=== PATIENT | female | born 1980 | race Caucasian/White ===

== ENCOUNTER 2020-04-26 11:54 | Emergency (ER) | payer MEDICAID ==
[~2020-04-26] VITALS: Ht 162.6 cm; Wt 45.4 kg
--- NOTE | 2020-04-26 12:12 | NUR ---
PT C/O RIGHT UPPER ABD PAIN 06/26. PT WAS SEEN LAST NIGHT AT [facility] AND WAS TOLD SHE NEED TO HAVE HER GALL BLADDER REMOVED. PT STATES SHE HAS HAD PAIN FOR 5 DAYS. PT DENIES N/V OR ANY OTHER SYMPTOM OTHER THAN PAIN. LAST ORAL INTAKE WAS AN ORANGE AT 1200 TODAY.
[2020-04-26] MEDS ORDERED: ONDANSETRON 2MG/ML, 2ML IVPush ONE (12:30)
[2020-04-26] MEDS ORDERED: MORPHINE SULFATE 4 MG/ML, 1ML IVPush PRN (12:30)
[2020-04-26] MEDS ORDERED: SODIUM CHLORIDE FLUSH 10ML SYR IVF ONE (12:30)
[2020-04-26] MEDS ORDERED: ONDANSETRON 2MG/ML, 2ML ONE (12:31)
[2020-04-26] MEDS ORDERED: MORPHINE SULFATE 4 MG/ML, 1ML ONE (12:31)
--- NOTE | 2020-04-26 12:35 | NUR ---
pt in bed with no signs or symptoms of acute distress noted respirations even and unlabored, rn at bedside to start iv and medicate pt. pt updated on plan of care, verbalizes understanding and agreement. us at bedside to do imaging.
[2020-04-26 12:37] LABS: BASOPHILS % (AUTO) 1 % (0-1); EOSINOPHILS % (AUTO) 10 % (1-7); LYMPHOCYTES % (AUTO) 41 % (22-44); MEAN CORPUSCULAR HEMOGLOBIN 31.8 pg (27.0-34.8); MEAN CORPUSCULAR HGB CONC 33.7 g/dL (32.4-35.8); MEAN PLATELET VOLUME 6.8 fL (7.4-10.4); MONOCYTES % (AUTO) 7 % (2-9); NEUTROPHILS % (AUTO) 42 % (42-75); PLATELET COUNT 427 x10^3/uL (130-400); RED BLOOD COUNT 4.23 x10^6/uL (3.82-5.3); RED CELL DISTRIBUTION WIDTH 13.1 % (9.6-15.2)
[2020-04-26 12:40] LABS: MD NO
[2020-04-26 12:47] LABS: ALANINE AMINOTRANSFERASE 19 U/L (12-78); ALBUMIN 3.3 g/dL (3.4-5.0); ANION GAP 5 mmol/L (5-15); CALCIUM 8.3 mg/dL (8.5-10.1); CHLORIDE 105 mmol/L (98-107); CREATININE 0.95 mg/dL (0.55-1.02)
[2020-04-26 12:51] LABS: ALKALINE PHOSPHATASE 75 U/L (45-117); BILIRUBIN,TOTAL 0.4 mg/dL (0.2-1.0); TOTAL PROTEIN 7.1 g/dL (6.4-8.2)
[2020-04-26 13:19] VITALS: BP 109/67
== END 2020-04-26 14:12 | disposition home or self-care (01) ==
LOC: ED 14:00
DX: K80.20 Calculus of gallbladder without cholecystitis without obstruction (principal); R10.11 Right upper quadrant pain; F17.200 Nicotine dependence, unspecified, uncomplicated
CPT/HCPCS: 36415; 76700; 80053; 83690; 84703; 85025; 96374; 96375; 99284; J2270; J2405